=== PATIENT | male | born 1980 | race Caucasian/White ===

== ENCOUNTER 2025-07-11 18:31 | Emergency (ER) | payer BC, SELFPAY ==
[2025-07-11 18:54] VITALS: BP 190/100
[2025-07-11 19:21] LABS: Hematocrit 40.0 % (39.0-52.0); Hemoglobin 13.8 g/dL (13.0-18.0); Mean Corp Hgb Conc. 34.5 g/dL (33.0-37.0); Mean Corpuscular Volume 91.7 fL (80.0-94.0); Nucleated Red Blood Cells % 0 % (-); Platelet Count 279 10^3/uL (130-400); Red Cell Dist. Width 12.3 % (11.5-14.5)
[2025-07-11 19:31] LABS: ALT (SGPT) 26 U/L (0-50); AST (SGOT) 32 U/L (17-59); Albumin 4.5 g/dl (3.5-5.0); Alkaline Phosphatase 36 U/L (38-126); Blood Urea Nitrogen 17 mg/dl (9-20); Calcium 9.6 mg/dl (8.4-10.2); Carbon Dioxide 27 mmol/L (22-30); Chloride 106 mmol/L (98-107); Glucose 125 mg/dl (70-99); Potassium 4.6 mmol/L (3.5-5.1); Sodium 136 mmol/L (135-145); Total Protein 7.4 g/dl (6.3-8.2); eGFR > 60.00
--- NOTE | 2025-07-12 00:36 | ED.GENMED ---
History of Present Illness
<Shalonda Larsen PA-C - Last Filed: 07/12/25 10:23>
General
Chief Complaint: Ear Problem
Source: patient
Exam Limitations: none
Time Seen by Provider: 07/11/25 23:46
Nursing documentation reviewed up to this point in time: agreed with
History of Present Illness
History of Present Illness:
Note:
CHIEF COMPLAINT(S)
Persistent hearing loss and pressure in the left ear.
HISTORY OF PRESENT ILLNESS
The patient is a 45-year-old male who reports noticing decreased hearing in the left ear approximately two weeks ago. He initially assumed it was related to seasonal changes and began taking cetirizine (Zyrtec). Approximately one week ago, the
hearing loss in the left ear increased, accompanied by a sensation of pressure extending from the ear throughout the left side of his face and head. The patient attempted a telemedicine consultation and was prescribed amoxicillin-clavulanate
(Augmentin) for a presumed middle ear infection, which he began taking last . However, the patient states that his symptoms have not improved, particularly the hearing loss.
The patient denies ear pain but describes a 'muffled' sensation with pressure and states that he experienced no fever. He describes additional symptoms such as occasional dizziness, pins and needles, and numbness from the ear down along the side of
the face, which began today. These symptoms have mostly resolved since his arrival at the emergency department. The patient occasionally experiences clear nasal drainage but denies significant sinus congestion or throat symptoms. Appetite has been
decreased, and he feels excessively fatigued despite adequate sleep.
Additional symptoms include a swishing heartbeat sound in the affected ear, especially when lying down, and transient 'fluttering' sensations upon rising in the morning. The patient confirms that there has been no head trauma, ear drainage, or
recent neck manipulation.
PHYSICAL EXAM
General: Alert, no acute distress.
Skin: Warm, dry.
Head: Normocephalic, atraumatic.
Neck: Supple, trachea midline.
Eye, Ears, Nose, and Throat: Significant cerumen obstructing view of the left tympanic membrane. Oral mucosa moist.
Cardiovascular: Normal peripheral perfusion, no edema.
Respiratory: Respirations are non-labored.
Gastrointestinal: Abdomen nondistended.
Back: Normal range of motion, Normal alignment.
Musculoskeletal: Normal ROM, normal strength.
Neurological: Alert and oriented to person, place, time, and situation; no focal neurological deficits observed.
Psychiatric: Cooperative, appropriate mood & affect.
PROBLEM LIST
Acute:
- Hearing loss in left ear
- Sensation of pressure in left ear
- Occasional dizziness
- Numbness and tingling on left side of face
PLAN
- The patient will undergo a computed tomography (CT) scan
- Discuss with attending physicians regarding the need for continued antibiotics or alternative management.
- Administer cerumenolytic drops and perform ear lavage to clear cerumen and enable better visualization of the tympanic membrane.
- Monitor symptoms and reevaluate, especially focusing on the resolution of neurological symptoms like numbness, tingling, and dizziness.
DIFFERENTIAL DIAGNOSIS
The Differential Diagnosis includes, in no particular order and is not limited to:
- Middle ear infection (Otitis media)
- Eustachian tube dysfunction
- Sinusitis with referred ear symptoms
- Labyrinthitis
- Vestibular neuritis
- Temporomandibular joint dysfunction
- Cerumen impaction
- Benign paroxysmal positional vertigo (BPPV)
- Acoustic neuroma
- Carotid artery dissection
Disposition:
SUMMARY OF ENCOUNTER
The patient is a 45-year-old male who presented to the emergency department with persistent left-sided headache and a sensation of fullness in the left ear. He reported a runny nose and had a previous telehealth consultation where he was prescribed
amoxicillin-clavulanate (Augmentin) without symptom relief. On examination, the patient was well-appearing with no acute distress and exhibited a non-focal neurological exam. No mastoid tenderness was observed, and a cerumen impaction was noted in
the left ear without clear signs of infection. Given the persistent headache, a CT scan of the head was performed, revealing no intracranial hemorrhage, sinusitis, or mastoiditis. The findings were discussed with the patient, and a decision was made
to start him on azithromycin instead.
DISPOSITION
Discharge.
ASSESSMENT
The patient presents with symptoms consistent with left-sided ear fullness and headache, possibly related to cerumen impaction or an upper respiratory tract infection.
PLAN
- Start azithromycin for potential upper respiratory tract infection.
- Recommend follow-up with Otolaryngology (ENT) for further evaluation of ear-related symptoms.
INDEPENDENT REVIEW OF LABS AND INTERPRETATION OF TESTS
- My independent interpretation of the CT scan of the head is negative for intracranial hemorrhage, sinusitis, and mastoiditis.
PROCEDURES
Ear examination revealed cerumen impaction in the left ear.
PATIENT EDUCATION AND COUNSELING
Discussed the importance of follow-up with an ENT specialist to evaluate ear fullness and the necessity of adhering to the newly prescribed azithromycin regimen.
FOLLOW-UP INSTRUCTIONS
The patient was advised to follow up with ENT as soon as possible.
MEDICATION RECONCILIATION
- Azithromycin prescribed.
MEDICAL DECISION MAKING
-Number and Complexity of Problems Addressed: Chronic conditions affecting care include cerumen impaction and potential upper respiratory tract infection. Differential Diagnosis includes middle ear infection, Eustachian tube dysfunction, sinusitis
with referred ear symptoms, labyrinthitis, vestibular neuritis, temporomandibular joint dysfunction, cerumen impaction, benign paroxysmal positional vertigo (BPPV), acoustic neuroma, carotid artery dissection.
Data:
Category 1
- Reviewed previous CT scan results confirming no acute intracranial abnormalities.
-Risk:
Consideration of Admission/Observation: Escalation of care including admission/observation was considered given the complexity and risk of the patients presenting complaint, exam findings, and/or their underlying comorbidities. However, ultimately,
I feel the patient is safe for outpatient management with close follow-up. Reasoning: Work-up reassuring, does not reveal any acute life/organ-threatening processes, patients symptoms are well controlled upon reevaluation, reexamination is
reassuring, vitals are stable, patient agreeable with discharge, reliable for follow-up.
DIAGNOSIS
- H91.90 Unspecified hearing loss, left ear
- R51 Headache
- H61.20 Impacted cerumen, unspecified ear
Review of Systems
<Shalonda Larsen PA-C - Last Filed: 07/12/25 10:23>
Review of Systems
All Other Systems: ROS reviewed and negative except as documented in HPI and ROS
Phy Exam
<Shalonda Larsen PA-C - Last Filed: 07/12/25 10:23>
Physical Exam
Physical Exam:
see hpi
Course
<Shalonda Larsen PA-C - Last Filed: 07/12/25 10:23>
Orders/Labs/Results
Orders:
Orders
07/11/25 19:10
Complete Blood Count/With Diff Urgent
Comprehensive Metabolic Panel Urgent
07/12/25 00:15
CT Head W/o Iv Contrast Urgent
Comment:
Reason For Exam: persistent
Ibuprofen [Motrin] 400 mg PO NOW STA
07/12/25 00:52
COVID-19 Antigen Urgent
Source: Nasal Swab
Influenza A+B Rapid Molecular Urgent
RYANN Source: Nasal Swab
Specimen Description:
Abnormal Lab Results
07/11/25
19:10
RBC 4.36 L 10^6/uL
(4.70-6.10)
MCH 31.7 H pg
(27.0-31.0)
Absolute Lymphs (auto) 1.0 L 10^3/uL
(1.2-3.4)
Absolute Monos (auto) 0.7 H 10^3/uL
(0.1-0.6)
Lymphocytes % 16.3 L %
(20.5-51.1)
Monocytes % 11.5 H %
(1.7-9.3)
Glucose 125 H mg/dl
(70-99)
Alkaline Phosphatase 36 L U/L
(38-126)
07/11/25 19:10
07/11/25 19:10
Vital Signs
Initial and Last Documented VS:
Initial Vital Signs
Temp Pulse Resp BP Pulse Ox
98.2 F 79 16 190/100 98
07/11/25 18:54 07/11/25 18:54 07/11/25 18:54 07/11/25 18:54 07/11/25 18:54
Last Documented Vital Signs
Temp Pulse Resp BP Pulse Ox
98.2 F 63 18 126/82 98
07/11/25 18:54 07/12/25 03:27 07/12/25 03:27 07/12/25 01:00 07/12/25 00:36
<Bashir Jung, DO - Last Filed: 07/12/25 02:52>
Orders/Labs/Results
Orders:
Orders
07/11/25 19:10
Complete Blood Count/With Diff Urgent
Comprehensive Metabolic Panel Urgent
07/12/25 00:15
CT Head W/o Iv Contrast Urgent
Comment:
Reason For Exam: persistent
Ibuprofen [Motrin] 400 mg PO NOW STA
07/12/25 00:52
COVID-19 Antigen Urgent
Source: Nasal Swab
Influenza A+B Rapid Molecular Urgent
RYANN Source: Nasal Swab
Specimen Description:
Abnormal Lab Results
07/11/25
19:10
RBC 4.36 L 10^6/uL
(4.70-6.10)
MCH 31.7 H pg
(27.0-31.0)
Absolute Lymphs (auto) 1.0 L 10^3/uL
(1.2-3.4)
Absolute Monos (auto) 0.7 H 10^3/uL
(0.1-0.6)
Lymphocytes % 16.3 L %
(20.5-51.1)
Monocytes % 11.5 H %
(1.7-9.3)
Glucose 125 H mg/dl
(70-99)
Alkaline Phosphatase 36 L U/L
(38-126)
07/11/25 19:10
07/11/25 19:10
Vital Signs
Initial and Last Documented VS:
Initial Vital Signs
Temp Pulse Resp BP Pulse Ox
98.2 F 79 16 190/100 98
07/11/25 18:54 07/11/25 18:54 07/11/25 18:54 07/11/25 18:54 07/11/25 18:54
Last Documented Vital Signs
Temp Pulse Resp BP Pulse Ox
98.2 F 63 18 126/82 98
07/11/25 18:54 07/12/25 03:27 07/12/25 03:27 07/12/25 01:00 07/12/25 00:36
<Shalonda Larsen PA-C - Last Filed: 07/12/25 10:23>
*Pulse Oximetry
SaO2: 98
Oxygen Mode of Delivery: Room air
Patient hypoxic: no
*Critical Care Note
Total Time (30-74mins, 75-104mins- exclusive of procedures): Not Applicable
ED Attending Note
<Shalonda Larsen PA-C - Last Filed: 07/12/25 10:23>
-
Portions of this chart may have been created with voice recognition software.� Occasional wrong word or��sound alike� substitutions may have occurred due to the inherent limitations of voice recognition software.
<Bashir Jung, DO - Last Filed: 07/12/25 02:52>
ED Attending Note
Patient seen and examined by attending physician: Yes
ED Attending Note:
I have reviewed and agree with history and treatment plan by Shalonda Larsen PA-C. My exam revealed 45-year-old male no acute distress, wax impacted left eardrum, likely otitis media. Will treat with Zithromax and have patient follow-up with a
ENT. Patient to finish Augmentin.
Discharge Plan
Departure
Patient Disposition: Home (Routine Discharge)
Date of Disposition: 07/12/25
Time of Disposition: 03:05
Patient with high blood pressure during this ER visit?: Yes
Condition: Good
Discharge Problem:
Sinusitis, Fullness in left ear
Instructions: Ear Wax Impaction (DC), BLOOD PRESSURE, Upper Respiratory Infection - Adult
Prescriptions:
New
azithromycin 250 mg tablet
250 mg PO DAILY 5 Days Qty: 5 0RF
Referrals:
Demarco Sutton MD [Active, Otology] - Call in 1-3 days for appt
NONE,* [Family Provider, Internal Medicine]
Activity Restrictions/Additional Instructions:
Please finish taking Augmentin. After that, please start taking Azithromycin.
Please call the attached number to schedule follow up appointment with ENT.
PLEASE RETURN TO ER SHOULD YOU DEVELOP VISUAL LOSS, BLURRY VISION, FAINTING SPELLS CHEST PAIN, SHORTNESS OF BREATH, FEVERS OR CHILLS, INTRACTABLE NAUSEA OR VOMITING, OR ANY OTHER SIGNS OR SYMPTOMS WORRISOME TO YOU.
Interventions
Interventions:
*Risk Screen - Suicide Last Done: 07/11/25 18:54
*General Assessment Last Done: 07/12/25 03:27
*Neglect/Abuse Screening Last Done: 07/11/25 18:54
*ED- Fall Risk Assessment Last Done: 07/12/25 03:27
*ED COVID-19 Vaccine History Last Done: 07/12/25 03:27
*Nursing Disposition Last Done: 07/12/25 03:27
Discharge Date and Time
Discharge Date/Time: 07/12/25 03:28
Print Language: [place]
[2025-07-12] MEDS: MOTRIN 400 MG PO (00:48)
[2025-07-12 00:51] VITALS: BP 155/84
[2025-07-12 01:00] VITALS: BP 126/82
[2025-07-12 01:33] LABS: COVID-19 Antigen Negative (Negative)
== END 2025-07-12 03:28 | disposition home or self-care (01) ==
LOC: EMR 18:31
PROVIDERS: Emergency Medicine; Physician Assistant; EMERGENCY PHYSICIAN Emergency Medicine
DX: J32.9 Chronic sinusitis, unspecified (principal); H61.22 Impacted cerumen, left ear; R51.9 Headache, unspecified; Z11.52 Encounter for screening for COVID-19
CPT/HCPCS: 99284; 70450; 80053; 85025; 87502; 87811